=== PATIENT | male | born 1945 | race African-American/Black ===

== ENCOUNTER 2018-04-21 07:53 | Emergency (ER) | payer MEDICARE, OTHER ==
[~2018-04-21] VITALS: Ht 182.9 cm; Wt 86.4 kg
[~2018-04-21 07:53] MED LIST: ACET-2902 PO; AMLO-511 PO; ASPI81TA39 PO; ATEN50TA PO; LISI40TA4 PO; METF-960 PO; NITR.4 SL; PANT40TA25 PO
[2018-04-21 09:16] LABS: BASOPHILS % (AUTO) 0.5 % (0.0-2.0); EOSINOPHILS % (AUTO) 9.7 % (1.0-6.0); HEMATOCRIT 41.6 % (41-53); HEMOGLOBIN 13.8 g/dL (13.5-17.5); LYMPHOCYTES # (AUTO) 1.8 K/uL (1.0-4.8); LYMPHOCYTES % (AUTO) 39.2 % (22.0-44.0); MEAN CORPUSCULAR HEMOGLOBIN 29.1 pg (26.0-34.0); MEAN CORPUSCULAR HGB CONC 33.2 G/dL (31.0-37.0); MEAN CORPUSCULAR VOLUME 88 fL (80-100); MONOCYTES # (AUTO) 0.3 K/uL (0.1-1.0); MONOCYTES % (AUTO) 7.4 % (2.0-9.0); NEUTROPHILS % (AUTO) 43.2 % (40.0-70.0); PLATELET COUNT (AUTO) 258 K/uL (150-450); RED BLOOD CELL COUNT(AUTO) 4.75 MIL/uL (4.50-5.90); RED CELL DISTRIBUTION WIDTH 13.7 % (11.5-14.5)
[2018-04-21 09:24] LABS: PROTHROMBIN TIME 10.1 SEC (9.4-11.6)
[2018-04-21 09:25] LABS: ANION GAP 12 mmol/L (8-16); CALCIUM, TOTAL 9.4 mg/dL (8.8-10.5); CARBON DIOXIDE 26 mmol/L (22-29); CHLORIDE 100 mmol/L (98-107); CREATININE 1.17 mg/dL (0.60-1.30); GLUCOSE,RANDOM 212 mg/dL (70-110); SODIUM SERUM 138 mmol/L (136-145); UREA NITROGEN, BLOOD 15 mg/dL (7-18)
[2018-04-21 09:26] LABS: GLOMERULAR FILTR. RATE CALC > 60 mL/min (>60)
[2018-04-21 09:31] LABS: ALANINE AMINOTRANSFERASE 24 U/L (12-78); ALBUMIN 3.4 g/dL (3.4-5.0); ALKALINE PHOSPHATASE 63 U/L (46-116); ASPARTATE AMINOTRANSFERASE 16 U/L (15-37); BILIRUBIN,TOTAL 0.3 mg/dL (0.1-1.0); TOTAL PROTEIN, SERUM 7.1 g/dL (6.4-8.2)
[2018-04-21 12:00] VITALS: BP 154/96
[2018-04-21 14:01] LABS: GLUCOSE,POINT OF CARE 216 MG/DL (70-110)
== END 2018-04-21 12:11 | disposition home or self-care (01) ==
LOC: EMS 07:54
DX: R53.1 Weakness (principal); E11.9 Type 2 diabetes mellitus without complications; I11.9 Hypertensive heart disease without heart failure; E78.00 Pure hypercholesterolemia, unspecified; I25.2 Old myocardial infarction; F03.90 Unspecified dementia, unspecified severity, without behavioral disturbance, psychotic disturbance, mood disturbance, and anxiety; Z86.73 Personal history of transient ischemic attack (TIA), and cerebral infarction without residual deficits; Z79.899 Other long term (current) drug therapy; Z79.01 Long term (current) use of anticoagulants; Z79.84 Long term (current) use of oral hypoglycemic drugs
CPT/HCPCS: 70450; 93005

== ENCOUNTER 2018-09-17 06:49 | Emergency (ER) | payer MEDICARE, OTHER ==
[~2018-09-17] VITALS: Ht 160 cm; Wt 79.5 kg
[2018-09-17 07:28] VITALS: BP 156/99
[2018-09-17 07:54] LABS: GLUCOSE,POINT OF CARE 193 MG/DL (70-110)
== END 2018-09-17 07:55 | disposition home or self-care (01) ==
LOC: EMS 06:53
DX: F03.90 Unspecified dementia, unspecified severity, without behavioral disturbance, psychotic disturbance, mood disturbance, and anxiety (principal); E11.39 Type 2 diabetes mellitus with other diabetic ophthalmic complication; H40.9 Unspecified glaucoma; E78.00 Pure hypercholesterolemia, unspecified; I25.2 Old myocardial infarction; I11.9 Hypertensive heart disease without heart failure; Z86.73 Personal history of transient ischemic attack (TIA), and cerebral infarction without residual deficits; Z79.899 Other long term (current) drug therapy
CPT/HCPCS: 82948

== ENCOUNTER 2019-01-01 12:04 | Emergency (ER) | payer MEDICARE, OTHER ==
[~2019-01-01] VITALS: Ht 172.7 cm; Wt 86.4 kg
[~2019-01-01 12:04] MED LIST changes: -ACET-2902 PO; -AMLO-511 PO; +AMLO5TAB9 PO; -NITR.4 SL; +NITR0.4T52 SL
[2019-01-01] MEDS ORDERED: ATOR40TA28 PO (12:27)
[2019-01-01] MEDS ORDERED: HUM10VIA SQ (12:27)
[2019-01-01] MEDS ORDERED: HYDR25TA PO (12:27)
[2019-01-01] MEDS ORDERED: DOCU250C91 PO (12:27)
[2019-01-01] MEDS ORDERED: LOSA50TA64 PO (12:27)
[2019-01-01] MEDS ORDERED: TAMS-1 PO (12:27)
[2019-01-01] MEDS ORDERED: OMEP20 PO (12:27)
[2019-01-01 12:50] LABS: GLUCOSE,POINT OF CARE 286 MG/DL (70-110)
[2019-01-01 13:18] LABS: BASOPHILS % (AUTO) 0.4 % (0.0-2.0); EOSINOPHILS % (AUTO) 1.2 % (1.0-6.0); HEMATOCRIT 37.5 % (41-53); HEMOGLOBIN 12.5 g/dL (13.5-17.5); LYMPHOCYTES # (AUTO) 1.4 K/uL (1.0-4.8); LYMPHOCYTES % (AUTO) 27.7 % (22.0-44.0); MEAN CORPUSCULAR HEMOGLOBIN 29.1 pg (26.0-34.0); MEAN CORPUSCULAR HGB CONC 33.4 G/dL (31.0-37.0); MEAN CORPUSCULAR VOLUME 87 fL (80-100); MONOCYTES # (AUTO) 0.5 K/uL (0.1-1.0); MONOCYTES % (AUTO) 9.6 % (2.0-9.0); NEUTROPHILS % (AUTO) 61.1 % (40.0-70.0); PLATELET COUNT (AUTO) 222 K/uL (150-450); RED CELL DISTRIBUTION WIDTH 13.6 % (11.5-14.5)
[2019-01-01 13:28] LABS: PROTHROMBIN TIME 10.4 SEC (9.4-11.6)
[2019-01-01 13:33] LABS: ALBUMIN 3.2 g/dL (3.4-5.0); BILIRUBIN,TOTAL 0.4 mg/dL (0.1-1.0); CREATININE 1.47 mg/dL (0.60-1.30); POTASSIUM 4.8 mmol/L (3.5-5.1); TOTAL PROTEIN, SERUM 6.7 g/dL (6.4-8.2)
[2019-01-01 15:20] VITALS: BP 123/76
== END 2019-01-01 15:39 | disposition home or self-care (01) ==
LOC: EMS 12:05
DX: R55 Syncope and collapse (principal); E86.0 Dehydration; N28.9 Disorder of kidney and ureter, unspecified; E11.9 Type 2 diabetes mellitus without complications; I11.9 Hypertensive heart disease without heart failure; E78.00 Pure hypercholesterolemia, unspecified; I25.2 Old myocardial infarction; Z86.73 Personal history of transient ischemic attack (TIA), and cerebral infarction without residual deficits; Z79.82 Long term (current) use of aspirin; Z79.4 Long term (current) use of insulin; Z79.84 Long term (current) use of oral hypoglycemic drugs
CPT/HCPCS: 93005

== ENCOUNTER 2019-10-21 10:59 | Inpatient (IN) | payer MEDICARE, MEDICAID ==
[~2019-10-21] VITALS: Ht 175.3 cm; Wt 85.5 kg
[~2019-10-21 10:59] MED LIST changes: +AMLO-257 PO; -AMLO5TAB9 PO; +ATEN-72 PO; -ATEN50TA PO; +ATOR40TA28 PO; +DOCU-342 PO; +HUM10VIA SQ; +HYDR-1475 PO; -LISI40TA4 PO; +LOSA50TA37 PO; -NITR0.4T52 SL; +OMEP20 PO; +PANT-31 PO; -PANT40TA25 PO; +TAMS-1 PO
[2019-10-21] MEDS ORDERED: PERTUSS(ACELL),DIPH,TET VAC/PF 0.5 ML VIAL IM ONE (11:15)
[2019-10-21] MEDS ORDERED: ACETAMINOPHEN 325 MG TABLET PO PRN ×2 (15:45→17:45)
[2019-10-21] MEDS ORDERED: ONDANSETRON HCL 4 MG/2 ML VIAL IVP PRN ×2 (15:45→17:45)
[2019-10-21 16:24] LABS: BASOPHILS % (AUTO) 0.3 % (0.0-2.0); EOSINOPHILS % (AUTO) 1.5 % (1.0-6.0); HEMATOCRIT 38.2 % (41-53); HEMOGLOBIN 12.8 g/dL (13.5-17.5); LYMPHOCYTES # (AUTO) 1.5 K/uL (1.0-4.8); LYMPHOCYTES % (AUTO) 32.2 % (22.0-44.0); MEAN CORPUSCULAR HEMOGLOBIN 28.8 pg (26.0-34.0); MEAN CORPUSCULAR HGB CONC 33.4 G/dL (31.0-37.0); MEAN CORPUSCULAR VOLUME 86 fL (80-100); MONOCYTES # (AUTO) 0.4 K/uL (0.1-1.0); MONOCYTES % (AUTO) 7.8 % (2.0-9.0); NEUTROPHILS # (AUTO) 2.7 K/uL (1.8-7.7); NEUTROPHILS % (AUTO) 58.2 % (40.0-70.0); PLATELET COUNT (AUTO) 239 K/uL (150-450); RED BLOOD CELL COUNT(AUTO) 4.43 MIL/uL (4.50-5.90); RED CELL DISTRIBUTION WIDTH 13.9 % (11.5-14.5)
[2019-10-21 16:39] LABS: ANION GAP 14 mmol/L (8-16); CALCIUM, TOTAL 9.5 mg/dL (8.8-10.5); CARBON DIOXIDE 22 mmol/L (22-29); CHLORIDE 101 mmol/L (98-107); CREATININE 1.12 mg/dL (0.60-1.30); GLUCOSE,RANDOM 294 mg/dL (70-110); POTASSIUM 3.3 mmol/L (3.5-5.1); SODIUM SERUM 137 mmol/L (136-145); UREA NITROGEN, BLOOD 17 mg/dL (7-18)
[2019-10-21 16:40] LABS: GLOMERULAR FILTR. RATE CALC > 60 mL/min (>60)
[2019-10-21 16:44] LABS: ALANINE AMINOTRANSFERASE 29 U/L (12-78); ALBUMIN 3.4 g/dL (3.4-5.0); ALKALINE PHOSPHATASE 75 U/L (46-116); ASPARTATE AMINOTRANSFERASE 17 U/L (15-37); BILIRUBIN,TOTAL 0.4 mg/dL (0.1-1.0); TOTAL PROTEIN, SERUM 7.5 g/dL (6.4-8.2)
[2019-10-21] MEDS ORDERED: DEXTROSE 50%-WATER 25 GM/50 ML SYRINGE IVP PRN (17:45)
[2019-10-21] MEDS ORDERED: MAGNESIUM HYDROXIDE SUSPENSION 30 ML UDCUP PO PRN (17:45)
[2019-10-21] MEDS ORDERED: ENALAPRILAT DIHYDRATE 1.25 MG/ML 2 ML VIAL IVP PRN (17:45)
[2019-10-21] MEDS ORDERED: BISACODYL 10 MG RECTAL RECTAL SUPPOSITORY PR PRN (17:45)
[2019-10-21] MEDS ORDERED: IPRATROPIUM BROMIDE 0.5 MG/2.5 ML NEB SOLUTION NEB PRN (17:45)
[2019-10-21] MEDS ORDERED: ALBUTEROL SULFATE 2.5 MG/0.5 ML NEB SOLUTION NEB PRN (17:45)
[2019-10-21] MEDS ORDERED: HydrALAZINE HCL 20 MG/ML VIAL IVP PRN (18:00)
[2019-10-21] MEDS: PANTOPRAZOLE SODIUM 40 MG DR TABLET PO SCH (18:29)
[2019-10-21] MEDS: INSULIN LISPRO 100 UNITS/ML SQ PRN ×2 (18:38→21:24)
[2019-10-21 20:26] VITALS: BP 164/88
[2019-10-21] MEDS: AmLODIPine BESYLATE 5 MG TABLET PO SCH (21:15)
[2019-10-21] MEDS: DOCUSATE SODIUM 250 MG CAPSULE PO SCH (21:15)
[2019-10-21] MEDS: ATORVASTATIN CALCIUM 40 MG TABLET PO SCH (21:16)
[2019-10-21] MEDS: HEPARIN SODIUM,PORCINE 5,000 UNITS/ML VIAL SQ SCH (21:17)
[2019-10-22] VITALS (8 sets, daily range): BP systolic 122–184; BP diastolic 78–105
[2019-10-22 05:41] LABS: BASOPHILS % (AUTO) 0.5 % (0.0-2.0); EOSINOPHILS % (AUTO) 1.4 % (1.0-6.0); HEMATOCRIT 38.6 % (41-53); HEMOGLOBIN 13.4 g/dL (13.5-17.5); LYMPHOCYTES # (AUTO) 1.5 K/uL (1.0-4.8); LYMPHOCYTES % (AUTO) 25.5 % (22.0-44.0); MEAN CORPUSCULAR HEMOGLOBIN 29.8 pg (26.0-34.0); MEAN CORPUSCULAR HGB CONC 34.7 G/dL (31.0-37.0); MEAN CORPUSCULAR VOLUME 86 fL (80-100); MONOCYTES # (AUTO) 0.7 K/uL (0.1-1.0); MONOCYTES % (AUTO) 11.1 % (2.0-9.0); NEUTROPHILS # (AUTO) 3.7 K/uL (1.8-7.7); NEUTROPHILS % (AUTO) 61.5 % (40.0-70.0); RED BLOOD CELL COUNT(AUTO) 4.49 MIL/uL (4.50-5.90); RED CELL DISTRIBUTION WIDTH 13.8 % (11.5-14.5)
[2019-10-22] MEDS: INSULIN LISPRO 100 UNITS/ML SQ PRN ×4 (06:10→20:53)
[2019-10-22 07:15] LABS: PLATELET COUNT (AUTO) 208 K/uL (150-450)
[2019-10-22 07:26] LABS: ANION GAP 13 mmol/L (8-16); CALCIUM, TOTAL 9.5 mg/dL (8.8-10.5); CARBON DIOXIDE 21 mmol/L (22-29); CHLORIDE 104 mmol/L (98-107); CHOL/HDL RATIO 3.5 (4.2-7.3); CHOLESTEROL 132 mg/dL (131-200); CREATININE 1.16 mg/dL (0.60-1.30); FREE T4 (FREE THYROXINE) 1.14 ng/dL (0.76-1.46); GLUCOSE,RANDOM 188 mg/dL (70-110); HDL CHOLESTEROL 38 mg/dL (40-60); LDL CHOL (CALC.) 75 mg/dL (0-130); SODIUM SERUM 138 mmol/L (136-145); THYROID STIMULATING HORMONE 6.85 uIU/mL (0.36-3.74); TRIGLYCERIDES 97 mg/dL (15-150); UREA NITROGEN, BLOOD 13 mg/dL (7-18)
[2019-10-22 07:27] LABS: GLOMERULAR FILTR. RATE CALC > 60 mL/min (>60)
[2019-10-22 07:34] LABS: HEMOGLOBIN A1C 9.5 % (3.8-5.6)
[2019-10-22 07:50] LABS: GLUCOMETER DEV NAME(LOC) 5S.2A; GLUCOSE,POINT OF CARE 221 MG/DL (70-110)
[2019-10-22 07:50] LABS: GLUCOMETER DEV NAME(LOC) 5N.1; GLUCOSE,POINT OF CARE 186 MG/DL (70-110)
[2019-10-22] MEDS ORDERED: POTASSIUM CHLORIDE 20 MEQ ER TABLET PO PRN (08:45)
[2019-10-22] MEDS: DOCUSATE SODIUM 250 MG CAPSULE PO SCH ×2 (09:00→20:52)
[2019-10-22] MEDS: ASPIRIN 81 MG CHEWABLE TABLET PO SCH (09:12)
[2019-10-22] MEDS: LOSARTAN POTASSIUM 50 MG TABLET PO SCH (09:13)
[2019-10-22] MEDS: ATENOLOL 50 MG TABLET PO SCH (09:13)
[2019-10-22] MEDS: TAMSULOSIN HCL 0.4 MG CAPSULE PO SCH (09:13)
[2019-10-22] MEDS: PANTOPRAZOLE SODIUM 40 MG DR TABLET PO SCH (09:13)
[2019-10-22] MEDS: HEPARIN SODIUM,PORCINE 5,000 UNITS/ML VIAL SQ SCH ×2 (09:15→20:52)
[2019-10-22 12:59] LABS: GLUCOMETER DEV NAME(LOC) 5N.1; GLUCOSE,POINT OF CARE 291 MG/DL (70-110)
[2019-10-22] MEDS ORDERED: ATEN100T92 PO (13:42)
[2019-10-22] MEDS: LEVOTHYROXINE SODIUM 25 MCG TABLET PO SCH (14:54)
[2019-10-22 18:07] LABS: GLUCOMETER DEV NAME(LOC) 5N.1; GLUCOSE,POINT OF CARE 243 MG/DL (70-110)
[2019-10-22] MEDS ORDERED: LEVO25TA9 PO (18:27)
[2019-10-22] MEDS ORDERED: ACET-66 PO (18:28)
[2019-10-22] MEDS ORDERED: ALBU8HFA NEB (18:31)
[2019-10-22] MEDS ORDERED: BISA10SU11 PR (18:31)
[2019-10-22] MEDS ORDERED: INSU100V SQ (18:32)
[2019-10-22] MEDS ORDERED: IPRAHFA NEB (18:33)
[2019-10-22] MEDS ORDERED: MOM30 PO (18:33)
[2019-10-22] MEDS: ATORVASTATIN CALCIUM 40 MG TABLET PO SCH (20:52)
[2019-10-22] MEDS: AmLODIPine BESYLATE 5 MG TABLET PO SCH (20:52)
[2019-10-23 03:31] VITALS: BP 144/92
[2019-10-23] MEDS: LEVOTHYROXINE SODIUM 25 MCG TABLET PO SCH (06:19)
[2019-10-23] MEDS: INSULIN LISPRO 100 UNITS/ML SQ PRN ×4 (06:27→20:35)
[2019-10-23 07:37] LABS: BASOPHILS % (AUTO) 0.5 % (0.0-2.0); EOSINOPHILS % (AUTO) 2.6 % (1.0-6.0); HEMATOCRIT 37.1 % (41-53); HEMOGLOBIN 12.8 g/dL (13.5-17.5); LYMPHOCYTES # (AUTO) 1.3 K/uL (1.0-4.8); LYMPHOCYTES % (AUTO) 34.2 % (22.0-44.0); MEAN CORPUSCULAR HEMOGLOBIN 30.2 pg (26.0-34.0); MEAN CORPUSCULAR HGB CONC 34.5 G/dL (31.0-37.0); MEAN CORPUSCULAR VOLUME 88 fL (80-100); MONOCYTES # (AUTO) 0.6 K/uL (0.1-1.0); MONOCYTES % (AUTO) 15.3 % (2.0-9.0); NEUTROPHILS # (AUTO) 1.8 K/uL (1.8-7.7); NEUTROPHILS % (AUTO) 47.4 % (40.0-70.0); PLATELET COUNT (AUTO) 202 K/uL (150-450); RED BLOOD CELL COUNT(AUTO) 4.24 MIL/uL (4.50-5.90)
[2019-10-23 07:46] LABS: ANION GAP 10 mmol/L (8-16); CALCIUM, TOTAL 9.1 mg/dL (8.8-10.5); CARBON DIOXIDE 22 mmol/L (22-29); CHLORIDE 104 mmol/L (98-107); CREATININE 1.13 mg/dL (0.60-1.30); GLUCOSE,RANDOM 256 mg/dL (70-110); POTASSIUM 3.9 mmol/L (3.5-5.1); SODIUM SERUM 136 mmol/L (136-145); UREA NITROGEN, BLOOD 14 mg/dL (7-18)
[2019-10-23 07:47] LABS: GLOMERULAR FILTR. RATE CALC > 60 mL/min (>60)
[2019-10-23 08:08] VITALS: BP 139/90
[2019-10-23] MEDS: ASPIRIN 81 MG CHEWABLE TABLET PO SCH (08:12)
[2019-10-23] MEDS: TAMSULOSIN HCL 0.4 MG CAPSULE PO SCH (08:12)
[2019-10-23] MEDS: DOCUSATE SODIUM 250 MG CAPSULE PO SCH ×3 (08:12→20:27)
[2019-10-23] MEDS: PANTOPRAZOLE SODIUM 40 MG DR TABLET PO SCH (08:12)
[2019-10-23] MEDS: LOSARTAN POTASSIUM 50 MG TABLET PO SCH (08:12)
[2019-10-23] MEDS: HEPARIN SODIUM,PORCINE 5,000 UNITS/ML VIAL SQ SCH ×2 (08:13→20:27)
[2019-10-23] MEDS: ATENOLOL 50 MG TABLET PO SCH (08:13)
[2019-10-23 11:32] LABS: GLUCOMETER DEV NAME(LOC) 5S.2A; GLUCOSE,POINT OF CARE 263 MG/DL (70-110)
[2019-10-23 11:33] LABS: GLUCOMETER DEV NAME(LOC) 5S.2A; GLUCOSE,POINT OF CARE 210 MG/DL (70-110)
[2019-10-23 12:20] VITALS: BP 125/78
[2019-10-23 13:07] VITALS: BP 125/78
[2019-10-23 15:39] VITALS: BP 112/68
[2019-10-23 18:06] LABS: GLUCOMETER DEV NAME(LOC) 5N.1; GLUCOSE,POINT OF CARE 286 MG/DL (70-110)
[2019-10-23 20:13] VITALS: BP 133/82
[2019-10-23] MEDS: ATORVASTATIN CALCIUM 40 MG TABLET PO SCH (20:27)
[2019-10-23] MEDS: AmLODIPine BESYLATE 5 MG TABLET PO SCH (20:27)
[2019-10-23 21:31] LABS: GLUCOMETER DEV NAME(LOC) 5N.1; GLUCOSE,POINT OF CARE 259 MG/DL (70-110)
[2019-10-23 21:34] LABS: GLUCOMETER DEV NAME(LOC) 5S.2A; GLUCOSE,POINT OF CARE 292 MG/DL (70-110)
[2019-10-24 00:07] VITALS: BP 165/93
[2019-10-24 04:34] VITALS: BP 166/95
[2019-10-24] MEDS: LEVOTHYROXINE SODIUM 25 MCG TABLET PO SCH (05:58)
[2019-10-24] MEDS: INSULIN LISPRO 100 UNITS/ML SQ PRN ×2 (05:59→12:00)
[2019-10-24 07:13] VITALS: BP 157/98
[2019-10-24 09:00] VITALS: BP 119/72
[2019-10-24 09:10] VITALS: BP 124/80
[2019-10-24] MEDS: DOCUSATE SODIUM 250 MG CAPSULE PO SCH (09:37)
[2019-10-24] MEDS: LOSARTAN POTASSIUM 50 MG TABLET PO SCH (09:37)
[2019-10-24] MEDS: HEPARIN SODIUM,PORCINE 5,000 UNITS/ML VIAL SQ SCH (09:37)
[2019-10-24] MEDS: TAMSULOSIN HCL 0.4 MG CAPSULE PO SCH (09:37)
[2019-10-24] MEDS: ATENOLOL 50 MG TABLET PO SCH (09:38)
[2019-10-24] MEDS: ASPIRIN 81 MG CHEWABLE TABLET PO SCH (09:39)
[2019-10-24] MEDS: PANTOPRAZOLE SODIUM 40 MG DR TABLET PO SCH (09:39)
[2019-10-24 11:36] VITALS: BP 123/79
[2019-10-24 13:10] LABS: GLUCOMETER DEV NAME(LOC) 5N.1; GLUCOSE,POINT OF CARE 243 MG/DL (70-110)
[2019-10-24 23:14] LABS: GLUCOMETER DEV NAME(LOC) 5S.2A; GLUCOSE,POINT OF CARE 257 MG/DL (70-110)
== END 2019-10-24 13:45 | disposition left against medical advice (07) | DRG 93 ==
LOC: EMS 11:00 → 5S 17:08
PROVIDERS: ADMIT Internal Medicine; ATTEND Internal Medicine
DX: G92 Toxic encephalopathy (principal); E11.65 Type 2 diabetes mellitus with hyperglycemia; D63.8 Anemia in other chronic diseases classified elsewhere; N40.0 Benign prostatic hyperplasia without lower urinary tract symptoms; I16.0 Hypertensive urgency; S09.90XA Unspecified injury of head, initial encounter; F03.90 Unspecified dementia, unspecified severity, without behavioral disturbance, psychotic disturbance, mood disturbance, and anxiety; I11.9 Hypertensive heart disease without heart failure; W01.0XXA Fall on same level from slipping, tripping and stumbling without subsequent striking against object, initial encounter; H40.89 Other specified glaucoma; I25.2 Old myocardial infarction; Z79.899 Other long term (current) drug therapy; Z79.891 Long term (current) use of opiate analgesic; Z79.4 Long term (current) use of insulin; Z79.82 Long term (current) use of aspirin; Z79.01 Long term (current) use of anticoagulants; Z79.84 Long term (current) use of oral hypoglycemic drugs; Z86.73 Personal history of transient ischemic attack (TIA), and cerebral infarction without residual deficits; Y93.89 Activity, other specified; Y92.89 Other specified places as the place of occurrence of the external cause; Y99.8 Other external cause status
CPT/HCPCS: 70450; 70544; 70551; 72125; 73503; 83036; 84132; 84439; 84443; 90715; 93005; 93306; 93880; 97163; 97530; J0360; J1644; J1815; 36415-L1; 36415-TC; 71045-TC; 80061-TC